=== PATIENT | male | born 1955 | race Caucasian/White ===

== ENCOUNTER → 2023-07-21 | Outpatient (CLI) | payer MEDICARE, OTHER, SELFPAY ==
[2023-07-21 09:47] LABS: Absolute Lymphocyte Count 1.96 X10^3/uL (0.83-4.51); Absolute Neutrophil Count 2.3 X10^3/uL (2.0-7.7); Basophil# 0.02 X10^3/uL; Basophil% 0.4 % (0-1); Eosinophil# 0.07 X10^3/uL; Eosinophils% 1.5 % (0-5); Hematocrit 47.2 % (40-54); Hemoglobin 15.5 g/dL (13.0-16.5); Lymphocyte # 1.96 X10^3/ul (0.83-4.51); Lymphocyte % 40.7 % (19-41); Mean Corp Hgb Conc 32.8 g/dL (32-36); Mean Corpuscular Hgb 30.6 pg (27.0-32.0); Mean Corpuscular Volume 93.1 fL (80-94); Mean Platelet Vol. 10.1 fl (6.2-12.0); Monocyte# 0.49 X10^3/uL; Monocyte% 10.2 % (0-10); NRBC Flagged by Analyzer 0 % (0-5); Neutrophil # 2.26 X10^3/uL (2.7-7.7); Platelet Count 198 K/mm3 (150-450); RBC Distribution Width CV 13.4 % (11.6-14.6); RBC Distribution Width SD 45.3 fl (35.1-43.9); Red Blood Count 5.07 M/mm3 (4.6-6.2); White Blood Count 4.8 K/mm3 (4.4-11.0)
[2023-07-21 10:16] LABS: Vitamin D,25 Hydroxy 39.5 ng/mL
[2023-07-21 10:37] LABS: AST(SGOT) 49 U/L (15-37); Alanine Aminotransfer ALT/SGPT 86 U/L (16-61); Albumin, Serum 4.1 g/dL (3.2-5.0); Alkaline Phosphatase 68 U/L (45-117); Anion Gap 2 (5-15); BUN 13 mg/dL (7-18); BUN/Creat Ratio 12.6 RATIO (10-20); Calcium,Total 9.9 mg/dL (8.5-10.1); Chloride 108 mmol/L (98-107); Cholesterol 256 mg/dL (200); Creatinine, Serum 1.03 mg/dL (0.70-1.30); EST Glomerular Filtration Rate 77 mL/min (>60); Est Glom Filt Rate - Afr Amer 93 mL/min (>60); Globulin 4.1 g/dL (2.2-4.2); Glucose 113 mg/dL (74-106); High Density Lipoprotein 45 mg/dL; Magnesium 2.2 mg/dL (1.6-2.6); PSA,Total - Annual Screen 5.25 ng/mL (0.00-4.00); Potassium 3.7 mmol/L (3.5-5.1); Protein, Total 8.2 g/dL (6.4-8.2); Sodium Level 140 mmol/L (136-145); Thyroid Stim Hormone (TSH) 1.11 uIU/mL (0.358-3.74); Triglycerides 179 mg/dL; Very Low Density Lipoprotein 36 mg/dL (5-40)
--- OUTSIDE RECORDS SUMMARY | 2023-07-21 11:22 | XMS RPT_ITS | CCD ---
Author Name Unknown Address [address] [place] [address] [id number] [place] [address] Organization [facility] Care Team Providers Care Computer Applications Engineer Name Role Phone Hayder Stewart MD Primary Care Provider Medications Completed/Discontinued Medications Medication Drug Class(es) Dates Sig (Normalized) Sig (Original) ascorbic acid 1000 mg oral tablet (2 sources) Vitamin C Start: 07-13-2021 take 1 tablet by mouth once daily Ascorbic Acid (VITAMIN C) 1,000 mg tablet Take 1 tablet PO daily. 0 07/13/2021 Active Problems Problem Classification Problem Date Documented Da te Episodic/Chronic Disorders of lipid metabolism (3 sources) Hyperlipidemia; Translations: [Hyperlipidemia, unspecified] Onset: 11-29-2005 Chronic Essential hypertension (2 sources) Benign essential hypertension; Translations: [Essential (primary) hypertension] Onset: 11-29-2005 11-29-2005 Chronic Hyperplasia of prostate (2 sources) Benign prostatic hyperplasia; Translations: [Benign prostatic hyperplasia without lower urinary tract symptoms] Onset: 07-04-2020 07-04-2020 Chronic Other eye disorders (2 sources) Posterior vitreous detachment of left eye; Translations: [Vitreous degeneration, left eye] Onset: 06-11-2017 06-11-2017 Chronic Other nutritional; endocrine; and metabolic disorders (2 sources) Severe obesity; Translations: [Morbid (severe) obesity due to excess calories] Onset: 06-02-2017 06-02-2017 Chronic Other screening for suspected conditions (not mental disorders or infectious disease) (1 source) Other specified abnormal findings of blood chemistry; Translations: [Other abnormal blood chemistry] Episodic Residual codes; unclassified (2 sources) Obstructive sleep apnea syndrome; Translations: [Obstructive sleep apnea (adult) (pediatric)] Onset: 07-13-2021 07-13-2021 Chronic Encounters Encounter Date Encounter Type Care Provider Facility Start: 03-17-2023 ambulatory Anna Nazario MA Na [facility] [place] Procedures Date Procedure Procedure Detail Performing Clinician Start: 07-13-2021 Lipid 1996 panel - S dano or Plasma Anna Nazario MA Start: 07-07-2021 Adult depression screening assessment Hayder Stewart MD Work Phone: Start: 08-05-2017 Colonoscopy Richie Stewart MD Work Phone: Plan of Treatment Date Care Activity Detail Author Start: 08-05-2027 Colonoscopy COLONOSCOPY [facility] Start: 08-05-2027 COLORECTAL CANCER SCREENING COLORECTAL CANCER SCREENING [facility] Start: 07-13-2026 Lipid 1996 panel - S dano or Plasma Lipid Screening [facility] Start: 07-13-2026 LIPID SCREEN LIPID SCREEN [facility] Start: 07-13-2026 PROSTATE CANCER SCRE ENING DISCUSSION PROSTATE CANCER SCREENING DISCUSSION [facility] Start: 03-26-2026 Urine microalbumin profile [facility] Start: 07-13-2024 DIABETES SCREEN DIABETES SCREEN [facility] Start: 07-13-2024 Diabetes Screening Diabetes Screenin g [facility] Start: 02-18-2023 Influenza vaccination Influenza Vacc ine (#1) [facility] Start: 07-13-2022 ANNUAL PCP TEAM DELI COOK VALENTE DISEASE VISIT ANNUAL PCP TEAM CHRONIC DISEASE VISIT [facility] Start: 07-13-2022 COVID-19 VACCINE (#1) COVID-19 VACCI NE (#1) [facility] Immunizations Immunization Date Immunization Notes Care Provider Lottie shannon 05-29-2019 Influenza, injectabl e, Madin [place] Canine Kidney, quadrivalent with preservative Hayder Stewart MD Work Phone: [facility] Work Phone: 05-29-2019 influenza virus vaccine, unspecified formulation Anna Nazario MA [facility] 06-02-2017 influenza, injectabl e, quadrivalent, preservative free Hayder Stewart MD Work Phone: [facility] Work Phone: 03-26-2016 influenza, injectabl e, quadrivalent, contains preservative Hayder Stewart MD Work Phone: [facility] 03-26-2016 tetanus toxoid, reduced diphtheria toxoid, and acellular pertussis vaccine, adsorbed Hayder Stewart MD Work Phone: [facility] 04-14-2015 influenza, injectabl e, quadrivalent, contains preservative Hayder Stewart MD Work Phone: [facility] 04-14-2015 influenza, seasonal, injectable Hayder Stewart MD Work Phone: [facility] Work Phone: 03-30-2010 influenza virus vaccine, unspecified formulation Hayder Stewart MD Work Phone: [facility] Work Phone: 11-29-2005 tetanus and diphther ia toxoids, adsorbed, preservative free, for adult use (2 Lf of tetanus toxoid and 2 Lf of diphtheria toxoid) Hayder Stewart MD Work Phone: [facility] Work Phone: 08-27-1993 diphtheria and tetan us toxoids, adsorbed for pediatric use Hayder Stewart MD Work Phone: [facility] Work Phone: Payers Date Payer Category Payer Medicare MEDICARE RAILROA D MEDICARE RAILROAD PB ONLY [id number] 2021-Present [phone] [address] [address] [place] [address] Medicare [id number] 2021 Medicare MEDICARE RAILROA D MEDICARE RAILROAD PB ONLY [id number] 2021-Present [phone] [address] [address] [place] [address] Medicare [id number] Social History Date Type Detail Facility Start: 03-26-2016 Tobacco smoking status NHIS Never smoked tobacco [facility] Work Phone: Start: 07-13-2021 Alcohol intake Current drinker of alcohol (finding) [facility] Start: 07-08-2021 History SDOH Alcohol Frequency 2 [facility] Start: 07-08-2021 History SDOH Alcohol Std Drinks 1 [facility] Start: 08-05-2017 History SDOH Alcohol Comment rarely [facility] Start: 07-08-2021 History SDOH Social Connections Phone 4 [facility] Start: 07-08-2021 History SDOH Social Connections Living 3 [facility] Start: 07-08-2021 History SDOH Financial 5 [facility] Start: 1955 Sex Assigned At Male [facility] Start: 06-13-2021 End: 07-13-2021 Exposure to SARS-CoV-2 (event) Not sure [facility] Start: 03-26-2016 Tobacco use and exposure Smokeless tobacco non-user [facility] Start: 05-25-2020 End: 07-07-2021 History of Social function [facility] Start: 05-25-2020 End: 07-07-2021 Social connection and isolation panel [facility] Do you belong to any clubs or organizations such as mandaeism groups, unions, fraternal or athletic groups, or school groups? No [facility] Are you now , , , , never or living with a partner? [facility] How often to you hav e a drink containing alcohol? Monthly or less [facility] How many standard dr inks containing alcohol do you have on a typical day? 1 or 2 [facility] How often do you hav e 6 or more drinks on 1 occasion? Never [facility] How hard is it for y ou to pay for the very basics like food, housing, medical care, and heating Not hard at all [facility] Do you feel stress - tense, restless, nervous, or anxious, or unable to sleep at night because your mind is troubled all the time - these days [OSQ] Not at all [facility] (I/We) worried fanny er (my/our) food would run out before (I/we) got money to buy more. Never true [facility] Start: 09-02-2018 Gender identity Identifies as male gender (finding) [facility] Start: 09-02-2018 Sexual orientation Heterosexual (finding) [facility] Clinical Note 03-17-2023 Note Date & Type Note Facility 03-17-2023 Note Patient Outreach (NE TNAV) CHERELLE THOMAS ([id number]) 1955 M Date Time Provider Department 03/17/23 ANNA NAZARIO NETNAV During your visit today, we recorded the following information about you: Anna Nazario MA 03/21/2023 10:15 AM Addendum POPULATION HEALTH NAVIGATION OUTREACH Action/ Patient replied thru Claire,. He as a new PCP. Updated PCP Dr. Leah Patel [facility] [place] MESSAGE SENT ANNUAL MEDICARE WELLNESS BP Controlled (<130/80) due on 09/08/2019 Advance Directive Discussion Never done Annual PCP Team Chronic Disease Visit due on 07/13/2022 Influenza Vaccine(1) due on 02/18/2023 Patient Identified by Name and : NO Outreach Outcome/Action Unable to reach patient: Left message [employer] message sent PCP field updated Did you use a PCP flex slot to schedule this appointment? No Reason for Outreach Care Gap or Scheduling/Wellness visits Payer: Payor: MEDICARE RAILROAD / Plan: MEDICARE RAILROAD PB ONLY / Product Type: Medicare / Care Gap Reviewed:: Annual Wellness visit Controlling Blood Pressure Flu Vaccine Reminder: Reminder note to check Health Maintenance for items below Health Maintenance items due: Covid-19 Vaccine(1) Never done Shingrix Vaccine(1 of 2) Never done BP Controlled (<130/80) due on 09/08/2019 Pneumococcal Vaccine: 65+(1 - PCV) Never done Advance Directive Discussion Never done Depression Assessment Never done Annual PCP Team Chronic Disease Visit due on 07/13/2022 Influenza Vaccine(1) due on 02/18/2023 Navigation Signature: Anna Nazario MA March 17, 2023 9:27 AM Allergies As of Date: 03/17/2023 (No Known Allergies) Date Reviewed: 07/13/2021 Reviewed by: Asya Aleman LPN - Fully Assessed Reason for Visit: Population Health Navigation Outreach [3910] Cmt: ACO BP AND DM Prescriptions as of 03/21/2023 - lisinopril-hydroCHLOROthiazide (PRINZIDE, ZESTORETIC) 20-25 mg per tablet Take 1 tablet by mouth every morning. - Magnesium Oxide 500 mg cap Take 1 capsule by mouth once daily. - Ascorbic Acid (VITAMIN C) 1,000 mg tablet Take 1 tablet PO daily. - atorvastatin (LIPITOR) 80 mg tablet Take 1 tablet by mouth once daily. For cholesterol. - lisinopril-hydroCHLOROthiazide (PRINZIDE,ZESTORETIC) 10-12.5 mg per tablet Take 2 tablets by mouth every morning. - Garlic 1 mg cap Take by mouth. 1-3 tablets per week - Aspirin 81 mg Tab Take 1 tablet by mouth once daily. Take with food. - CHOLECALCIFEROL, VITAMIN D3, (VITAMIN D-3 ORAL) Take by mouth. - Coenzyme Q10 (CO Q-10) 100 mg ORAL Cap Take 100 mg by mouth. - ROGAINE 2 % TOPICAL SOLN APPLY TWICE DAILY - MULTI-VITAMIN TAB Take one(1) tablet daily. Meds Comments as of 01/29/2013: Potassium tablet - 1 daily. Tiera Bee Ma Problem List As Of Date 03/17/2023 Noted Resolved Hyperlipidemia LDL goal <100 [E78.5] 11/29/2005 Contact dermatitis and other eczema, due to uns*11/29/2005 06/02/2017 BENIGN HYPERTENSION [I10] 11/29/2005 Class 2 severe obesity due to excess calories w*06/02/2017 Posterior vitreous detachment of left eye [H43.*06/11/2017 Benign prostatic hyperplasia without lower urin*07/04/2020 MYLES on CPAP [G47.33] 07/13/2021 Encounter Status:Closed by ANNA NAZARIO on 03/17/23 [facility] Progress note 03-17-2023 Note Date & Type Note Facility 03-17-2023 Note HNO ID: [id number] Author: Anna Nazario MA Service: ? Author Type: Medical Insurance Coder Type: Progress Notes Filed: 03/21/2023 10:15 AM Note Text: POPULATION HEALTH NAVIGATION OUTREACH Action/FYI Patient replied thru Claire,. He as a new PCP. Updated PCP Dr. Leah Patel [facility] [place] MESSAGE SENT ANNUAL MEDICARE WELLNESS BP Controlled (<130/80) due on 09/08/2019 Advance Directive Discussion Never done Annual PCP Team Chronic Disease Visit due on 07/13/2022 Influenza Vaccine(1) due on 02/18/2023 Patient Identified by Name and : NO Outreach Outcome/Action Unable to reach patient: Left message [employer] message sent PCP field updated Did you use a PCP flex slot to schedule this appointment? No Reason for Outreach Care Gap or Scheduling/Wellness visits Payer: Payor: MEDICARE RAILROAD / Plan: MEDICARE RAILROAD PB ONLY / Product Type: Medicare / Care Gap Reviewed:: Annual Wellness visit Controlling Blood Pressure Flu Vaccine Reminder: Reminder note to check Health Maintenance for items below Health Maintenance items due: Covid-19 Vaccine(1) Never done Shingrix Vaccine(1 of 2) Never done BP Controlled (<130/80) due on 09/08/2019 Pneumococcal Vaccine: 65+(1 - PCV) Never done Advance Directive Discussion Never done Depression Assessment Never done Annual PCP Team Chronic Disease Visit due on 07/13/2022 Influenza Vaccine(1) due on 02/18/2023 Navigation Signature: Anna Nazario MA March 17, 2023 9:27 AM [facility] History of Present illness Narrative 03-17-2023 Anna Nazario MA - 03/17/2023 9:27 AM EDT Note Date & Type Note Facility 03-17-2023 History of Presen t illness Narrative POPULATION HEALTH NAVIGATION OUTREACH Action/FYI [facility] [employer] MESSAGE SENT ANNUAL MEDICARE WELLNESS BP Controlled (<130/80) due on 09/08/2019 Advance Directive Discussion Never done Annual PCP Team Chronic Disease Visit due on 07/13/2022 Influenza Vaccine(1) due on 02/18/2023 Patient Identified by Name and : NO Outreach Outcome/Action Unable to reach patient: Left message [employer] message sent Did you use a PCP flex slot to schedule this appointment? No Reason for Outreach Care Gap or Scheduling/Wellness visits Payer: Payor: MEDICARE RAILROAD / Plan: MEDICARE RAILROAD PB ONLY / Product Type: Medicare / Care Gap Reviewed:: Annual Wellness visit Controlling Blood Pressure Flu Vaccine Reminder: Reminder note to check Health Maintenance for items below Health Maintenance items due: Covid-19 Vaccine(1) Never done Shingrix Vaccine(1 of 2) Never done BP Controlled (<130/80) due on 09/08/2019 Pneumococcal Vaccine: 65+(1 - PCV) Never done Advance Directive Discussion Never done Depression Assessment Never done Annual PCP Team Chronic Disease Visit due on 07/13/2022 Influenza Vaccine(1) due on 02/18/2023 Navigation Signature: Anna Nazario MA March 17, 2023 9:27 AM documented in this encounter [facility] Note 07-14-2021 Telephone Encounter - Hayder Stewart MD - 07/14/2021 5:00 PM ESTTelephone Encounter - Alva Flores RN - 07/14/2021 4:28 PM EST Note Date & Type Note Facility 07-14-2021 Miscellaneous Notes New rx sent. Phoned patient and given provider's message below with verbalized understanding and states he did read the message stating this. Patient reports Josie tells him there is an issue with his lisinopril- hctz Rx. This nurse spoke with Josie who reports lisinopril - hctz 10-12.5 is not covered to take 2 pills/daily. Insurance will cover 20-25 as 1 pill daily. Pended. Josie states you can do a PA if you prefer the 10-125 mg 2 tabs daily. HIV and hepatitis C screening negative. Vitamin D level normal. Total cholesterol and LDL (bad cholesterol) are very high which puts him at high risk for heart attack and stroke. Recommend high intensity statin with Lipitor 80 mg daily as discussed in office yesterday. Recheck in 3 months. LFTs mildly elevated. Recommend US of liver for further evaluation. Suspect fatty liver disease. documented in this encounter [facility] History of Past illness Narrative 11-29-2005 Note Date & Type Note Facility documented as of this encounter (statuses as of 01/06/2022) [facility] History of Past illness Narrative 11-29-2005 Note Date & Type Note Facility documented as of this encounter (statuses as of 03/18/2023) [facility] Evaluation note Note Date & Type Note Facility documented in this encounter [facility] Reason for referral (narrative) Diagnostic Procedure Only (Routine) - Pending Review Note Date & Type Note Facility Referral ID Status Reason Start Date Expiration Date Visits Requested Visits Authorized [id number] Pending Review Auto-Generat ed Referral 07/14/2021 08/13/2022 1 1 [facility] Advance Directives No Advanced Directives Records FoundDocuments on File Type Date Recorded 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 Expl 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 Advance Directive(s) 08/05/2017 10:54 AM Summary Purpose Family History No Family History Records Found Additional Source Comments Source Comments (unrecognize d section and content) In the event this informatio n is protected by the Federal Confidentiality of Alcohol and Drug Abuse Patient Records regulations: The Federal rules restrict any use of the information to criminally investigate or prosecute any alcohol or drug abuse patient.[facility] the event this information is protected by the Federal Confidentiality of Alcohol and Drug Abuse Patient Records regulations: The Federal rules restrict any use of the information to criminally investigate or prosecute any alcohol or drug abuse patient.[facility] Reason for Visit (unrecogniz ed section and content) Reason Onset Date Comments Population Health Navigation Outreach 03/17/2023 ACO BP AND DM Care Teams (unrecognized sec tion and content) Computer Applications Engineer Relationship Specialty Start Date End Date Hayder Stewart MD [address] [place] [address] PCP - General Family Medicine 06/15/21 (unrecognized sect ion and content) No Status Records Found INFORMATION SOURCE (unrecogn ized section and content) FOR RECORDS PERTAINING TO PATIENTS WHO ARE OR HAVE BEEN ENROLLED IN A CHEMICAL DEPENDENCY/SUBSTANCEABUSE PROGRAM, SOME INFORMATION MAY BE OMITTED. This clinical summary was aggregated from multiple sources. Caution should be exercised in using it in the provision of clinical care. This summary normalizes information from multiple sources, and as a consequence, information in this document may materially change the coding, format and clinical context of patient data. In addition, data may be omitted in some cases. CLINICAL DECISIONS SHOULD BE BASED ON THE PRIMARY CLINICAL RECORDS. [facility] [employer] [facility]. provides no warranty or guarantee of the accuracy or completeness of information in this document.
== END | disposition home or self-care (01) ==
LOC: LAB 09:17
PROVIDERS: PCP Internal Medicine; Referring Provider Internal Medicine; Visit Provider Internal Medicine
DX: I10 Essential (primary) hypertension (principal); E78.00 Pure hypercholesterolemia, unspecified; E55.9 Vitamin D deficiency, unspecified; Z12.5 Encounter for screening for malignant neoplasm of prostate
CPT/HCPCS: 36415; 80053; 80061; 82306; 83735; 84153; 84443; 85025; G0103

== ENCOUNTER → 2024-07-23 | Outpatient (CLI) | payer MEDICARE, OTHER, SELFPAY ==
[2024-07-23 10:16] LABS: Absolute Lymphocyte Count 2.43 X10^3/uL (0.83-4.51); Absolute Neutrophil Count 2.6 X10^3/uL (2.0-7.7); Basophil# 0.04 X10^3/uL; Basophil% 0.7 % (0-1); Eosinophil# 0.12 X10^3/uL; Eosinophils% 2.1 % (0-5); Hematocrit 45.3 % (40-54); Hemoglobin 15.4 g/dL (13.0-16.5); Lymphocyte # 2.43 X10^3/ul (0.83-4.51); Lymphocyte % 42.3 % (19-41); Mean Corpuscular Hgb 31.4 pg (27.0-32.0); Mean Corpuscular Volume 92.4 fL (80-94); Mean Platelet Vol. 10.2 fl (6.2-12.0); Monocyte% 10.4 % (0-10); NRBC Flagged by Analyzer 0 % (0-5); Neutrophil # 2.55 X10^3/uL (2.7-7.7); Neutrophil % 44.3 % (47-70); Platelet Count 199 K/mm3 (150-450); RBC Distribution Width CV 13.2 % (11.6-14.6); RBC Distribution Width SD 44.8 fl (35.1-43.9); White Blood Count 5.8 K/mm3 (4.4-11.0)
[2024-07-23 10:57] LABS: Vitamin B12 624 pg/mL (211-911); Vitamin D,25 Hydroxy 27.2 ng/mL
[2024-07-23 11:32] LABS: AST(SGOT) 55 U/L (15-37); Alanine Aminotransfer ALT/SGPT 136 U/L (16-61); Alkaline Phosphatase 69 U/L (45-117); Anion Gap 8 (5-15); BUN 16 mg/dL (7-18); Calcium,Total 9.3 mg/dL (8.5-10.1); Chloride 102 mmol/L (98-107); Cholesterol 224 mg/dL (200); Creatinine, Serum 0.94 mg/dL (0.70-1.30); EST Glomerular Filtration Rate 85 mL/min (>60); Est Glom Filt Rate - Afr Amer 103 mL/min (>60); Glucose 107 mg/dL (74-106); High Density Lipoprotein 42 mg/dL; PSA,Total- Diagnostic 2.89 ng/mL (0.0-4.0); Potassium 3.6 mmol/L (3.5-5.1); Sodium Level 137 mmol/L (136-145); Triglycerides 180 mg/dL; Very Low Density Lipoprotein 36 mg/dL (5-40)
[2024-07-23 14:54] LABS: Hemoglobin A1c 5.6 % (3.8-5.6)
== END | disposition home or self-care (01) ==
PROVIDERS: PCP Internal Medicine; Referring Provider Internal Medicine; Visit Provider Internal Medicine
DX: E78.00 Pure hypercholesterolemia, unspecified (principal); Z13.220 Encounter for screening for lipoid disorders; R97.20 Elevated prostate specific antigen [PSA]; E78.1 Pure hyperglyceridemia; I10 Essential (primary) hypertension; R73.9 Hyperglycemia, unspecified; E55.9 Vitamin D deficiency, unspecified; N40.0 Benign prostatic hyperplasia without lower urinary tract symptoms; E53.8 Deficiency of other specified B group vitamins
CPT/HCPCS: 36415; 80053; 80061; 82306; 82607; 83036; 83735; 84153; 84443; 85025